=== PATIENT | female | born 1995 | race Caucasian/White ===

== ENCOUNTER 2017-02-09 19:29 | Emergency (ER) | payer SELFPAY ==
[~2017-02-09] VITALS: Ht 162.6 cm; Wt 54.4 kg
[~2017-02-09 19:29] MED LIST: ADVAIR HF1 IN; AFRIN 12 HOUR0.05 %; AMOXICILLIN500 MG PO; AUGMENTIN400 MG/5 M OR; BACTRIM DS1 TAB OR; CIPROFLOXACN500 MG PO; KETOCONAZOLE2 % EX; MEDROXYPR A150 MG/M1 IM; PROVENTIL0.083 % IN; SINGULAIR10 MG OR; TAM75CAP OR; TENORMIN25 MG OR; TRAMADOL HCL50 MG OR; TRAMADOL HCL50 MG PO; ULTRAM50 M1 PO; ULTRAM50 MG OR; VENTOLIN HFA IN; ZOFRAN ODT4 MG PO
[2017-02-09 21:21] LABS: HEMATOCRIT 40.2 % (37.0-47.0); HEMOGLOBIN 13.6 g/dl (12.0-16.0); IMMATURE GRANULOCYTES 0.3 % (0.0-1.0); MEAN CELL VOLUME 90.7 fL CALC (80.0-100.0); MEAN CORPUSCULAR HGB 30.7 pG CALC (26.0-32.0); MEAN CORPUSCULAR HGB CONC 33.8 g/L CALC (32.0-36.0); NEUT# 5.9 thou/uL (2.00-7.15); RED BLOOD COUNT 4.43 mill/uL (4.20-5.60); RED CELL DISTRI WIDTH 11.8 % (11.5-15.5)
[2017-02-09 21:23] LABS: URINE BILIRUBIN - DIPSTICK NEGATIVE (NEGATIVE); URINE BLOOD DIPSTICK TRACE-INTACT (NEGATIVE); URINE CLARITY CLEAR; URINE COLOR YELLOW; URINE GLUCOSE - DIPSTICK NEGATIVE (NEGATIVE); URINE KETONE NEGATIVE (NEGATIVE); URINE LEUK ESTERASE NEGATIVE (NEGATIVE); URINE NITRITE - DIPSTICK NEGATIVE (Negative); URINE PROTEIN - DIPSTICK NEGATIVE (NEG-TRACE); URINE SPECIFIC GRAVITY 1.025; URINE UROBILINOGEN - DIPSTICK 0.2 E.U./dL (0.2)
[2017-02-09 21:39] LABS: ALBUMIN 4.4 g/dL (3.2-5.0); ALKALINE PHOSPHATASE 70 u/l (38-126); AMYLASE 48 u/l (30-110); ANION GAP 17 (6-22 (CALC)); BILIRUBIN, TOTAL 0.4 mg/dL (0.0-1.4); BUN 10 mg/dL (7-17); BUN/CREATININE RATIO 13 (12-20 (CALC)); CALCIUM 9.8 mg/dL (8.4-10.2); CARBON DIOXIDE 26 mmol/l (22-30); CHLORIDE 102 mmol/l (95-108); CREATININE 0.8 mg/dL (0.5-1.0); GFR > 60 ML/MIN (>=60 (CALC)); GFR FOR AFR.AMER. > 60 ML/MIN (>=60 (CALC)); GLUCOSE 80 mg/dL (65-105); LIPASE 94 u/l (23-300); POTASSIUM 3.8 mmol/l (3.5-5.1); SGOT/AST 21 u/l (14-36); SGPT/ALT 34 u/l (9-52); SODIUM 142 mmol/l (137-146); TOTAL PROTEIN 7.5 g/dL (6.3-8.2)
[2017-02-10 00:13] VITALS: BP 94/62
== END 2017-02-10 00:15 | disposition home or self-care (01) | DRG 392 ==
LOC: ED 19:29
PROVIDERS: Emergency Medicine
DX: R10.33 Periumbilical pain (principal); G43.909 Migraine, unspecified, not intractable, without status migrainosus; R11.0 Nausea; G47.419 Narcolepsy without cataplexy

== ENCOUNTER 2017-11-03 12:10 | Emergency (ER) | payer OTHER ==
[~2017-11-03] VITALS: Ht 162.6 cm; Wt 60.2 kg
[2017-11-03 13:18] LABS: URINE BILIRUBIN - DIPSTICK NEGATIVE (NEGATIVE); URINE BLOOD DIPSTICK TRACE-INTACT (NEGATIVE); URINE COLOR YELLOW; URINE GLUCOSE - DIPSTICK NEGATIVE (NEGATIVE); URINE KETONE NEGATIVE (NEGATIVE); URINE LEUK ESTERASE NEGATIVE (NEGATIVE); URINE NITRITE - DIPSTICK NEGATIVE (Negative); URINE PROTEIN - DIPSTICK NEGATIVE (NEG-TRACE); URINE UROBILINOGEN - DIPSTICK 0.2 E.U./dL (0.2)
[2017-11-03 13:20] LABS: URINE CLARITY CLEAR
[2017-11-03 13:20] LABS: INFLUENZA A NONE DETECTED (NONE DETECT); INFLUENZA B NONE DETECTED (NONE DETECT)
[2017-11-03] MEDS ORDERED: BACTRIM DS1 TAB PO (13:33)
[2017-11-03 14:18] VITALS: BP 119/74
== END 2017-11-03 14:18 | disposition home or self-care (01) | DRG 203 ==
LOC: ED 12:10
PROVIDERS: Emergency Medicine
DX: J40 Bronchitis, not specified as acute or chronic (principal); R06.2 Wheezing; R09.81 Nasal congestion; R50.9 Fever, unspecified; R11.0 Nausea; R52 Pain, unspecified

== ENCOUNTER → 2018-12-08 | Outpatient (REF) | payer SELFPAY ==
[~2018-12-08] MED LIST changes: +BACTRIM DS1 TAB PO
== END | disposition home or self-care (01) | DRG 951 ==
LOC: LAB 14:13
DX: Z02.0 Encounter for examination for admission to educational institution (principal)

== ENCOUNTER 2019-06-25 14:57 | Emergency (ER) | payer BC ==
[~2019-06-25] VITALS: Ht 162.6 cm; Wt 65.2 kg
[2019-06-25 15:48] LABS: HEMATOCRIT 41.3 % (37.0-47.0); IMMATURE GRANULOCYTES 0.3 % (0.0-5.0); MEAN CORPUSCULAR HGB 30.2 pG CALC (26.0-32.0); MEAN CORPUSCULAR HGB CONC 33.9 g/L CALC (32.0-36.0); NEUT# 8.21 thou/uL (2.00-7.15); RED BLOOD COUNT 4.64 mill/uL (4.20-5.60); RED CELL DISTRI WIDTH 12.4 % (11.5-15.5)
[2019-06-25 15:51] LABS: URINE BILIRUBIN - DIPSTICK NEGATIVE (NEGATIVE); URINE BLOOD DIPSTICK TRACE-INTACT (NEGATIVE); URINE COLOR YELLOW; URINE GLUCOSE - DIPSTICK NEGATIVE (NEGATIVE); URINE KETONE NEGATIVE (NEGATIVE); URINE LEUK ESTERASE NEGATIVE (NEGATIVE); URINE NITRITE - DIPSTICK NEGATIVE (Negative); URINE PROTEIN - DIPSTICK TRACE mg/dL (NEG-TRACE)
[2019-06-25 16:08] LABS: ALBUMIN 5.2 g/dL (3.2-5.0); ALKALINE PHOSPHATASE 71 u/l (38-126); AMYLASE 60 u/l (30-110); ANION GAP 17 (6-22 (CALC)); BILIRUBIN, TOTAL 0.4 mg/dL (0.0-1.4); BUN 8 mg/dL (7-17); BUN/CREATININE RATIO 11 (12-20 (CALC)); CARBON DIOXIDE 25 mmol/l (22-30); CHLORIDE 106 mmol/l (95-108); CREATININE 0.7 mg/dL (0.5-1.0); ETHYL ALCOHOL 0 mg/dl (0-30); GFR > 60 ML/MIN (>=60 (CALC)); GFR FOR AFR.AMER. > 60 ML/MIN (>=60 (CALC)); LIPASE 62 u/l (23-300); POTASSIUM 4.1 mmol/l (3.5-5.1); SGOT/AST 27 u/l (14-36); SODIUM 145 mmol/l (137-146); TOTAL PROTEIN 8.6 g/dL (6.3-8.2)
[2019-06-25] MEDS ORDERED: ONDANSETRON4 MG PO (17:07)
[2019-06-25 17:21] VITALS: BP 129/85
== END 2019-06-25 17:28 | disposition home or self-care (01) | DRG 392 ==
LOC: ED 14:57
PROVIDERS: Emergency Medicine
DX: R11.10 Vomiting, unspecified (principal)

== ENCOUNTER 2021-01-22 | Emergency (ER) | payer OTHER, BC ==
[~2021-01-22] MED LIST changes: +ONDANSETRON4 MG PO
[2021-01-22 06:30] LABS: HEMATOCRIT 38.7 % (37.0-47.0); HEMOGLOBIN 12.9 g/dl (12.0-16.0); IMMATURE GRANULOCYTES 0.4 % (0.0-5.0); MEAN CELL VOLUME 89.6 fL CALC (80.0-100.0); MEAN CORPUSCULAR HGB 29.9 pG CALC (26.0-32.0); MEAN CORPUSCULAR HGB CONC 33.3 g/dL CAL (32.0-36.0); NEUT# 3.74 thou/uL (2.00-7.15); RED BLOOD COUNT 4.32 mill/uL (4.20-5.60); RED CELL DISTRI WIDTH 11.7 % (11.5-15.5)
[2021-01-22 06:34] LABS: URINE BILIRUBIN - DIPSTICK NEGATIVE (NEGATIVE); URINE BLOOD DIPSTICK TRACE-LYSED (NEGATIVE); URINE COLOR YELLOW; URINE GLUCOSE - DIPSTICK NEGATIVE (NEGATIVE); URINE KETONE NEGATIVE (NEGATIVE); URINE LEUK ESTERASE NEGATIVE (NEGATIVE); URINE PROTEIN - DIPSTICK NEGATIVE (NEG-TRACE); URINE UROBILINOGEN - DIPSTICK 0.2 E.U./dL (0.2)
[2021-01-22 06:36] LABS: URINE NITRITE - DIPSTICK NEGATIVE (Negative)
[2021-01-22 06:49] LABS: ALBUMIN 4.3 g/dL (3.2-5.0); ALKALINE PHOSPHATASE 57 u/l (38-126); ANION GAP 11 (6-22 (CALC)); BILIRUBIN, TOTAL 0.5 mg/dL (0.0-1.4); BUN 9 mg/dL (7-17); BUN/CREATININE RATIO 12 (12-20 (CALC)); CARBON DIOXIDE 25 mmol/l (22-30); CHLORIDE 104 mmol/l (95-108); CREATININE 0.8 mg/dL (0.5-1.0); GFR > 60 ML/MIN (>=60 (CALC)); GFR FOR AFR.AMER. > 60 ML/MIN (>=60 (CALC)); POTASSIUM 4.1 mmol/l (3.5-5.1); SGOT/AST 27 u/l (14-36); SODIUM 137 mmol/l (137-146); TOTAL PROTEIN 7.4 g/dL (6.3-8.2)
== END 2021-01-22 10:28 | disposition home or self-care (01) | DRG 178 ==
DX: U07.1 COVID-19 (principal); R11.2 Nausea with vomiting, unspecified; I42.4 Endocardial fibroelastosis

== ENCOUNTER 2021-06-23 04:01 | Emergency (ER) | payer OTHER, BC ==
[~2021-06-23] VITALS: Ht 162.6 cm; Wt 69.0 kg
[2021-06-23 06:13] LABS: URINE BILIRUBIN - DIPSTICK NEGATIVE (NEGATIVE); URINE BLOOD DIPSTICK NEGATIVE (NEGATIVE); URINE COLOR YELLOW; URINE GLUCOSE - DIPSTICK NEGATIVE (NEGATIVE); URINE KETONE NEGATIVE (NEGATIVE); URINE LEUK ESTERASE NEGATIVE (NEGATIVE); URINE PROTEIN - DIPSTICK NEGATIVE (NEG-TRACE); URINE SPECIFIC GRAVITY >=1.030; URINE UROBILINOGEN - DIPSTICK 0.2 E.U./dL (0.2)
[2021-06-23 06:13] LABS: HEMATOCRIT 35.5 % (37.0-47.0); HEMOGLOBIN 11.8 g/dl (12.0-16.0); IMMATURE GRANULOCYTES 0.1 % (0.0-5.0); MEAN CELL VOLUME 91.5 fL CALC (80.0-100.0); MEAN CORPUSCULAR HGB 30.4 pG CALC (26.0-32.0); MEAN CORPUSCULAR HGB CONC 33.2 g/dL CAL (32.0-36.0); NEUT# 5.7 thou/uL (2.00-7.15); RED BLOOD COUNT 3.88 mill/uL (4.20-5.60); RED CELL DISTRI WIDTH 12.1 % (11.5-15.5)
[2021-06-23 06:14] LABS: URINE NITRITE - DIPSTICK NEGATIVE (Negative)
[2021-06-23 06:26] LABS: ALBUMIN 4.3 g/dL (3.2-5.0); ALKALINE PHOSPHATASE 48 u/l (38-126); AMYLASE 53 u/l (30-110); ANION GAP 14 (6-22 (CALC)); BUN 9 mg/dL (7-17); BUN/CREATININE RATIO 16 (12-20 (CALC)); CARBON DIOXIDE 23 mmol/l (22-30); CHLORIDE 101 mmol/l (95-108); CREATININE 0.6 mg/dL (0.5-1.0); GFR > 60 ML/MIN (>=60 (CALC)); GFR FOR AFR.AMER. > 60 ML/MIN (>=60 (CALC)); LIPASE 98 u/l (23-300); POTASSIUM 3.7 mmol/l (3.5-5.1); SGOT/AST 21 u/l (14-36); SODIUM 134 mmol/l (137-146); TOTAL PROTEIN 7.1 g/dL (6.3-8.2)
[2021-06-23 06:27] LABS: BILIRUBIN, TOTAL 0.2 mg/dL (0.0-1.4)
[2021-06-23 07:06] LABS: BETA-HCG, QUANT(RESULT NUMBER) 77331 mIU/mL
[2021-06-23 07:30] VITALS: BP 100/70
[2021-07-10] MEDS ORDERED: MUPIROCIN2 % EX (14:08)
[2021-07-10] MEDS ORDERED: PRE-NATAL PO (20:48)
== END 2021-06-23 07:30 | disposition home or self-care (01) | DRG 832 ==
LOC: ED 04:01
PROVIDERS: Emergency Medicine
DX: O21.0 Mild hyperemesis gravidarum (principal); O99.411 Diseases of the circulatory system complicating pregnancy, first trimester; I42.9 Cardiomyopathy, unspecified; Z3A.08 8 weeks gestation of pregnancy; Z86.16 Personal history of COVID-19

== ENCOUNTER 2021-06-26 21:41 | Emergency (ER) | payer OTHER, BC ==
[~2021-06-26] VITALS: Ht 162.6 cm; Wt 68.0 kg
[2021-06-26 22:47] VITALS: BP 103/66
[2021-06-27 00:09] LABS: HEMATOCRIT 36.7 % (37.0-47.0); HEMOGLOBIN 12.2 g/dl (12.0-16.0); IMMATURE GRANULOCYTES 0.3 % (0.0-5.0); MEAN CELL VOLUME 91.5 fL CALC (80.0-100.0); MEAN CORPUSCULAR HGB 30.4 pG CALC (26.0-32.0); MEAN CORPUSCULAR HGB CONC 33.2 g/dL CAL (32.0-36.0); NEUT# 4.91 thou/uL (2.00-7.15); RED BLOOD COUNT 4.01 mill/uL (4.20-5.60); RED CELL DISTRI WIDTH 12.1 % (11.5-15.5)
[2021-06-27 00:24] LABS: ALBUMIN 4.2 g/dL (3.2-5.0); ALKALINE PHOSPHATASE 47 u/l (38-126); AMYLASE 68 u/l (30-110); ANION GAP 12 (6-22 (CALC)); BILIRUBIN, TOTAL 0.2 mg/dL (0.0-1.4); BUN 8 mg/dL (7-17); BUN/CREATININE RATIO 13 (12-20 (CALC)); CARBON DIOXIDE 24 mmol/l (22-30); CHLORIDE 102 mmol/l (95-108); CREATININE 0.6 mg/dL (0.5-1.0); GFR > 60 ML/MIN (>=60 (CALC)); GFR FOR AFR.AMER. > 60 ML/MIN (>=60 (CALC)); LIPASE 66 u/l (23-300); POTASSIUM 3.7 mmol/l (3.5-5.1); SGOT/AST 22 u/l (14-36); SODIUM 134 mmol/l (137-146); TOTAL PROTEIN 7.3 g/dL (6.3-8.2)
[2021-06-27 00:43] LABS: BETA-HCG, QUANT(RESULT NUMBER) > 15000 mIU/mL
[2021-06-27 01:05] LABS: URINE BILIRUBIN - DIPSTICK NEGATIVE (NEGATIVE); URINE BLOOD DIPSTICK NEGATIVE (NEGATIVE); URINE COLOR YELLOW; URINE GLUCOSE - DIPSTICK NEGATIVE (NEGATIVE); URINE KETONE NEGATIVE (NEGATIVE); URINE LEUK ESTERASE NEGATIVE (NEGATIVE); URINE PROTEIN - DIPSTICK NEGATIVE (NEG-TRACE)
[2021-06-27 01:07] LABS: URINE NITRITE - DIPSTICK NEGATIVE (Negative)
[2021-06-27] MEDS ORDERED: PHENERGAN25 MG RE (01:30)
== END 2021-06-27 02:27 | disposition home or self-care (01) | DRG 832 ==
LOC: ED 21:41
PROVIDERS: Family Medicine
DX: O21.0 Mild hyperemesis gravidarum (principal); O46.91 Antepartum hemorrhage, unspecified, first trimester; O99.411 Diseases of the circulatory system complicating pregnancy, first trimester; I42.9 Cardiomyopathy, unspecified; Z3A.08 8 weeks gestation of pregnancy; Z86.16 Personal history of COVID-19; Z20.822 Contact with and (suspected) exposure to COVID-19

== ENCOUNTER 2021-10-24 03:20 | Emergency (ER) | payer OTHER, BC ==
[~2021-10-24] VITALS: Ht 162.6 cm; Wt 72.7 kg
[~2021-10-24 03:20] MED LIST changes: +MUPIROCIN2 % EX; +PHENERGAN25 MG RE; +PRE-NATAL PO
[2021-10-24 05:23] LABS: HEMATOCRIT 34.9 % (37.0-47.0); HEMOGLOBIN 11.6 g/dl (12.0-16.0); IMMATURE GRANULOCYTES 0.4 % (0.0-5.0); MEAN CELL VOLUME 94.6 fL CALC (80.0-100.0); MEAN CORPUSCULAR HGB 31.4 pG CALC (26.0-32.0); MEAN CORPUSCULAR HGB CONC 33.2 g/dL CAL (32.0-36.0); NEUT# 8.32 thou/uL (2.00-7.15); RED BLOOD COUNT 3.69 mill/uL (4.20-5.60); RED CELL DISTRI WIDTH 12.5 % (11.5-15.5)
[2021-10-24 05:42] LABS: ALBUMIN 3.6 g/dL (3.2-5.0); ALKALINE PHOSPHATASE 61 u/l (38-126); ANION GAP 9 (6-22 (CALC)); BILIRUBIN, TOTAL 0.3 mg/dL (0.0-1.4); BUN 8 mg/dL (7-17); BUN/CREATININE RATIO 14 (12-20 (CALC)); CARBON DIOXIDE 22 mmol/l (22-30); CHLORIDE 108 mmol/l (95-108); CREATININE 0.6 mg/dL (0.5-1.0); GFR > 60 ML/MIN (>=60 (CALC)); GFR FOR AFR.AMER. > 60 ML/MIN (>=60 (CALC)); POTASSIUM 3.7 mmol/l (3.5-5.1); SGOT/AST 16 u/l (14-36); SODIUM 135 mmol/l (137-146)
[2021-10-24] MEDS ORDERED: AMOXICILLIN500 MG PO (06:16)
[2021-10-24 06:25] VITALS: BP 118/72
== END 2021-10-24 06:30 | disposition home or self-care (01) | DRG 831 ==
LOC: ED 03:20
PROVIDERS: Emergency Medicine
DX: O98.512 Other viral diseases complicating pregnancy, second trimester (principal); U07.1 COVID-19; O99.412 Diseases of the circulatory system complicating pregnancy, second trimester; I42.9 Cardiomyopathy, unspecified; Z3A.25 25 weeks gestation of pregnancy; Z86.16 Personal history of COVID-19

== ENCOUNTER 2023-10-24 16:11 | Emergency (ER) | payer BC ==
[~2023-10-24] VITALS: Ht 162.6 cm; Wt 66.0 kg
[2023-10-24] VITALS (12 sets, daily range): BP systolic 87–116; BP diastolic 55–81
[~2023-10-24 16:11] MED LIST changes: +PERCOCET 5/325M1 TAB PO; +VALTREX1 GM PO
[2023-10-24 16:42] LABS: BASO% 0.2 % (0-3); EOS% 0.7 % (0-8); HEMATOCRIT 37.2 % (37.0-47.0); HEMOGLOBIN 12.5 g/dl (12.0-16.0); IMMATURE GRANULOCYTES 0.1 % (0.0-5.0); LYMPH% 12.3 % (15-41); MEAN CELL VOLUME 89.2 fL CALC (80.0-100.0); MEAN CORPUSCULAR HGB CONC 33.6 g/dL CAL (32.0-36.0); MONO% 5.8 % (2-13); NEUT# 7.35 thou/uL (2.00-7.15); NEUT% 80.9 % (42-76); RED BLOOD COUNT 4.17 mill/uL (4.20-5.60); RED CELL DISTRI WIDTH 11.8 % (11.5-15.5)
[2023-10-24 16:55] LABS: ALBUMIN 4.2 g/dL (3.2-5.0); ALKALINE PHOSPHATASE 55 u/l (38-126); ANION GAP 10 (6-22 (CALC)); BILIRUBIN, TOTAL 0.4 mg/dL (0.02-1.3); BUN 8 mg/dL (7-17); BUN/CREATININE RATIO 15 (12-20 (CALC)); CARBON DIOXIDE 25 mmol/l (22-30); CHLORIDE 105 mmol/l (95-108); CREATININE 0.5 mg/dL (0.5-1.0); GFR FOR AFR.AMER. > 60 ML/MIN (>=60 (CALC)); GFR OTHER RACES > 60 ML/MIN (>=60 (CALC)); POTASSIUM 3.7 mmol/l (3.5-5.1); SGOT/AST 24 u/l (14-36); SODIUM 136 mmol/l (137-146); TOTAL PROTEIN 7.2 g/dL (6.3-8.2)
[2023-10-24 17:05] LABS: URINE BLOOD DIPSTICK Trace-intact (NEGATIVE); URINE GLUCOSE - DIPSTICK Negative (NEGATIVE); URINE KETONE Trace mg/dL (NEGATIVE); URINE LEUK ESTERASE Negative (NEGATIVE); URINE NITRITE - DIPSTICK Negative (Negative); URINE PROTEIN - DIPSTICK 30 mg/dL (NEG-TRACE); URINE SPECIFIC GRAVITY >=1.030; URINE UROBILINOGEN - DIPSTICK 0.2 E.U./dL (0.2)
[2023-10-24 17:13] LABS: URINE BACTERIA MODERATE hpf; URINE COLOR Yellow; URINE RBC 0-2 RBC/hpf (0-5); URINE SQUAMOUS EPITHELIAL CELL MANY EPI/hpf (0-FEW)
[2023-10-24 17:15] LABS: BETA-HCG, QUANT(RESULT NUMBER) 128990 mIU/mL
[2023-10-24] MEDS ORDERED: METRONIDAZOLE500 MG PO (17:22)
[2023-10-24] MEDS ORDERED: PROMETHAZINE HY25 M1 PO (17:22)
== END 2023-10-24 19:33 | disposition home or self-care (01) | DRG 833 ==
LOC: ED 16:11
PROVIDERS: Family Medicine
DX: O23.591 Infection of other part of genital tract in pregnancy, first trimester (principal); Z3A.11 11 weeks gestation of pregnancy